=== PATIENT | female | born 1985 | race Caucasian/White ===

== ENCOUNTER 2017-04-17 12:59 | Emergency (ER) | payer OTHER ==
[2017-04-17 12:59] VITALS: BMI 23.9
[2017-04-17 13:21] VITALS: BP 132/95; PULSE 70; RESP 18; TEMP 97.5; O2SAT 100
[2017-04-17] MEDS ORDERED: Naproxen 550 mg Tab PO STA (13:59)
--- NOTE | 2017-04-17 14:02 | C.PDOC ---
History Of Present Illness 32 y/o female presents to ED with complaints of lump on lower back for "a long time" and is hurting her now. Patient denies falls, injuries, fever, cough, sob , cp or any other complaints at this time. Time Seen by Provider: 04/17/17 13:28 Chief Complaint (Nursing): Abnormal Skin Integrity History Per: Patient History/Exam Limitations: no limitations Onset/Duration Of Symptoms: Days Current Symptoms Are (Timing): Still Present Past Medical History Reviewed: Historical Data, Nursing Documentation, Vital Signs Vital Signs: Last Vital Signs Temp 97.5 F L 04/17/17 13:17 Pulse 70 04/17/17 13:17 Resp 18 04/17/17 13:17 BP 132/95 H 04/17/17 13:17 Pulse Ox 100 04/17/17 14:03 - [facility] Procedures CLOSURE SKIN & SUBCUTANEOUS NEC (10/27/14) INJECT RH IMMUNE GLOBUL (03/21/13) OTHER SKIN & SUBQ I D (08/14/14) TETANUS TOXOID ADMINIST (10/27/14) Family History: States: Unknown Family Hx - Social History Hx Tobacco Use: No Hx Alcohol Use: No Hx Substance Use: No - Immunization History Hx Tetanus Toxoid Vaccination: No Hx Influenza Vaccination: No Hx Pneumococcal Vaccination: No Review Of Systems Except As Marked, All Systems Reviewed And Found Negative. Constitutional: Negative for: Fever Cardiovascular: Negative for: Chest Pain Respiratory: Negative for: Cough, Shortness of Breath Skin: Negative for: Rash Physical Exam - Physical Exam Appears: No Acute Distress Skin: Normal Color, Warm Head: Atraumatic, Normacephalic Cardiovascular: Rhythm Regular, No Murmur Respiratory: Normal Breath Sounds, No Rales, No Rhonchi, No Wheezing Back: Other (Lumbar area L3 1cm palpable cyst vs lipoma, - erythema, - flunctuance or enduration, - rash, mild tenderness to palpation) Neurological/Psych: Oriented x3, Normal Motor, Normal Sensation, Normal Reflexes ED Course And Treatment O2 Sat by Pulse Oximetry: 100 (RA) Pulse Ox Interpretation: Normal Medical Decision Making Medical Decision Making: Patient will be discharged with medication prescription and advised to follow up with Surgeon in 1 week. Disposition Counseled Patient/Family Regarding: Diagnosis, Need For Followup, Rx Given - Disposition Referrals: Holden Peters MD [Staff Provider] - [facility] [Outside] Disposition: HOME/ ROUTINE Disposition Time: 14:10 Condition: STABLE Additional Instructions: FOLLOW UP WITH GENERAL SURGEON WITHIN 1 WEEK FOR FURTHER EVALUATION USE PAIN MEDICATION NEEDED RETURN TO ER IF SYMPTOMS WORSEN Prescriptions: Naproxen [Naprosyn Tab] 375 mg PO BID PRN #20 tab PRN Reason: pain Forms: General Discharge Instructions Print Language: HONDURAN - POA Present On Arrival: None - Clinical Impression Clinical Impression: Cyst, Lipoma of back - Scribe Statement The provider has reviewed the documentation as recorded by the Danyell Fink All medical record entries made by the Danyell were at my direction and personally dictated by me. I have reviewed the chart and agree that the record accurately reflects my personal performance of the history, physical exam, medical decision making, and the department course for this patient. I have also personally directed, reviewed, and agree with the discharge instructions and disposition.
[2017-04-17] MEDS ORDERED: Naproxen 550 mg Tab PO ONE (14:06)
== END 2017-04-17 14:11 | disposition home or self-care (01) ==
LOC: C.ER 12:59
DX: D17.1 Benign lipomatous neoplasm of skin and subcutaneous tissue of trunk (principal)